=== PATIENT | female | born 1975 | race Caucasian/White ===

== ENCOUNTER 2017-11-02 12:32 | Emergency (ER) | payer MEDICAID ==
[~2017-11-02] VITALS: Ht 167.6 cm; Wt 84.0 kg
[2017-11-02] MEDS ORDERED: VALACYCLOVIR HCL 500MG TABLET PO STA ×2 (13:34→14:48)
[2017-11-02] MEDS ORDERED: PREDNISONE 20MG TABLET PO ONE (13:45)
[2017-11-02] MEDS ORDERED: ACETAMINOPHEN WITH CODEINE 300/30MG TABLET PO ONE (13:45)
[2017-11-02] MEDS ORDERED: ONDANSETRON 4MG/5ML UDC PO ONE (13:45)
[2017-11-02 15:00] VITALS: BP 124/74
== END 2017-11-02 15:03 | disposition home or self-care (01) ==
LOC: ER 12:52
DX: B02.9 Zoster without complications (principal); F43.10 Post-traumatic stress disorder, unspecified; M32.9 Systemic lupus erythematosus, unspecified; F31.9 Bipolar disorder, unspecified; Z88.0 Allergy status to penicillin; Z98.51 Tubal ligation status
CPT/HCPCS: 81025; 99284; J7512; Q0162

== ENCOUNTER 2017-11-08 12:59 | Emergency (ER) | payer MEDICAID ==
[~2017-11-08] VITALS: Ht 167.6 cm; Wt 86.8 kg
[2017-11-08] MEDS ORDERED: HYDROCODONE/ACETAMINOPHEN 5/325MG TABLET PO ONE (15:30)
[2017-11-08] MEDS ORDERED: ONDANSETRON 4MG ODT PO ONE (15:30)
[2017-11-08 17:42] VITALS: BP 112/76
== END 2017-11-08 17:53 | disposition home or self-care (01) ==
LOC: ER 12:59
DX: B02.9 Zoster without complications (principal); R11.0 Nausea; K58.9 Irritable bowel syndrome, unspecified; M79.7 Fibromyalgia; M32.9 Systemic lupus erythematosus, unspecified; Z88.0 Allergy status to penicillin; Z88.8 Allergy status to other drugs, medicaments and biological substances
CPT/HCPCS: 81025; 99283; Q0162